=== PATIENT | female | born 2000 | race Caucasian/White ===

== ENCOUNTER 2019-04-28 00:23 | Emergency (ER) | payer BC ==
[~2019-04-28] VITALS: Ht 160 cm; Wt 52.3 kg
[2019-04-28 00:26] VITALS: BP 131/83; TEMP 98.1
[2019-04-28 00:56] VITALS: PULSE 97
== END 2019-04-28 00:56 | disposition home or self-care (01) ==
LOC: COL.ER 00:23
DX: S06.0X0A Concussion without loss of consciousness, initial encounter (principal); S00.81XA Abrasion of other part of head, initial encounter; V43.62XA Car passenger injured in collision with other type car in traffic accident, initial encounter

== ENCOUNTER → 2020-04-07 | Outpatient (CLI) | payer BC | LOC: COL.RAD 13:08 | DX: E04.9 Nontoxic goiter, unspecified (principal) ==